=== PATIENT | male | born 1970 | race Caucasian/White ===

== ENCOUNTER 2020-06-25 17:37 | Outpatient (CLI) | payer OTHER, SELFPAY | END 2020-06-25 17:38 | disposition home or self-care (01) | LOC: ANHCOVIDVC 17:37 | PROVIDERS: PCP Family Medicine | DX: Z23 Encounter for immunization (principal) | CPT/HCPCS: 0001A; 91300 ==

== ENCOUNTER 2020-07-16 17:44 | Outpatient (CLI) | payer OTHER, SELFPAY | END 2020-07-16 17:45 | disposition home or self-care (01) | LOC: ANHCOVIDVC 17:44 | PROVIDERS: PCP Family Medicine | DX: Z23 Encounter for immunization (principal) | CPT/HCPCS: 0002A; 91300 ==

== ENCOUNTER 2024-09-20 17:46 | Outpatient (CLI) | payer BC, SELFPAY ==
--- NOTE | ~2024-09-20 | XR_ITS ---
Cervical Spine: AP, lateral, open-mouth views Clinical History: Pain Findings: The normal lordotic curve is maintained. The vertebral bodies and posterior elements appea r intact. There is mild degenerative disc change at C5-C6 and C6-C7. There is mild facet arthropathy at these levels. No instability evident on flexion or extension. Pre-vertebral soft tissues are unrem arkable. Impression: Mild degenerative spondylosis at C5-C6 and C6-C7. Reviewed, dictated and finalized at location . Impression: Mild degenerative spondylosis at C5-C6 and C6-C7.
--- NOTE | ~2024-09-20 | XR_ITS ---
Right Shoulder Technique: AP and axillary views were obtained. Clinical History: Pain Findings: No fracture or dislocation is seen. Osseous alignment is anatomic. The glenohumeral and acr omioclavicular joint spaces are preserved. Soft tissues are unremarkable. Impression: Unremarkable right shoulder radiographs. Reviewed, dictated and finalized at [facility]. Impression: Unremarkable right shoulder radiographs.
--- OUTSIDE RECORDS SUMMARY | 2024-09-20 17:50 | XMS_ITS ---
Author Organization Unknown Medications Medication Instructions Effective Dates (start - stop) Status levothyroxine sodium 0.175 M G Oral Tablet [Synthroid] - Completed - - Compl eted hydrochlorothiazide 12.5 MG / lisinopril 10 MG Oral Tablet - Complete d atorvastatin 10 MG Oral Tablet 2023-02-27 T00:00:00Z - Completed atorvastatin 10 MG Oral Tablet 2022-12-06 T00:00:00Z - Completed levothyroxine sodium 0.2 MG Oral Tablet [Synthroid] - Completed - - Compl eted - - Compl eted hydrochlorothiazide 12.5 MG / lisinopril 10 MG Oral Tablet - Complete d levothyroxine sodium 0.175 M G Oral Tablet [Synthroid] - Completed levothyroxine sodium 0.175 M G Oral Tablet [Synthroid] - Completed levothyroxine sodium 0.15 MG Oral Tablet [Synthroid] - Completed - - Compl eted Patient Care team information Name Category Status Period Participants - - Proposed period not known -
== END 2024-09-20 17:47 | disposition home or self-care (01) ==
PROVIDERS: PCP Family Medicine; Visit Provider Family Medicine
DX: M47.812 Spondylosis without myelopathy or radiculopathy, cervical region (principal)
CPT/HCPCS: 72050; 73030

== ENCOUNTER 2024-10-15 12:51 | Outpatient (CLI) | payer BC, SELFPAY ==
--- NOTE | ~2024-10-15 | MR_ITS ---
MRI of the cervical spine Clinical History: Radiculopathy Technique: Axial T2-weighted and gradient images, and sagittal T1-weighted, T2-weighted, and STIR tereso ges were acquired. Findings: There is no fracture or subluxation of the cervical spine. Vertebral bodies maintain normal height and alignment. No bone marrow signal reality seen. At C2-C3, there is minimal disc bulge. No spinal canal stenosis, cord compression, or neural foramina l narrowing. At C3-C4, there is minimal disc bulge. No spinal canal stenosis, cord compression, or neural foramina l narrowing. At C4-C5, there is disc osteophyte complex with mild compression of the ventral cord, especially at t he central to left side. No definite neural foraminal narrowing. At C5-C6, there is disc osteophyte complex with mild canal stenosis and probable mild ventral cord co mpression. There is bilateral neural foraminal narrowing, right worse than left. At C6-C7, there is disc osteophyte complex with mild to moderate canal stenosis. No debbie cord compre ssion. There is right neural foraminal narrowing. Questionable minimal left neural foraminal narrowin g. No abnormal signal seen in the spinal cord. Paravertebral soft tissues are unremarkable. Impression: Moderate degenerative spondylosis, especially from C4 through C7, as detailed above. Reviewed, dictated and finalized at [facility]. Impression: Moderate degenerative spondylosis, especially from C4 through C7, as detailed zain saxena.
== END 2024-10-15 12:52 | disposition home or self-care (01) ==
LOC: MICIMG 12:53
PROVIDERS: PCP Family Medicine; Visit Provider Family Medicine
DX: M47.22 Other spondylosis with radiculopathy, cervical region (principal)
CPT/HCPCS: 72141